=== PATIENT | female | born 1995 | race Caucasian/White ===

== ENCOUNTER 2017-07-12 01:11 | Emergency (ER) | payer OTHER ==
[~2017-07-12] VITALS: Ht 167.6 cm; Wt 60.0 kg
[2017-07-12 01:13] VITALS: BP 137/69; PULSE 86; RESP 18; TEMP 98.3; O2SAT 97
[2017-07-12] MEDS ORDERED: BIRTH CONTROL (01:17)
[2017-07-12] MEDS ORDERED: KETOROLAC TROMETHAMINE 30 MG/ML (IVP) VIAL IV PUSH ONE (01:45)
--- NOTE | 2017-07-12 02:05 | RADRPT ---
EXAM DATE/TIME: 07/12/2017 01:51 [place] COMPARISON: No previous studies available for comparison. INDICATIONS : Patient complains of chest pain. MEDICAL HISTORY : None. SURGICAL HISTORY : None. ENCOUNTER: Initial ACUITY: 1 day PAIN SCORE: 3/10 LOCATION: chest FINDINGS: Single AP view of the chest. The lungs are clear. Cardiomediastinal silhouette within normal limits. No evidence of pleural effusion or pneumothorax. CONCLUSION: No acute cardiopulmonary disease identified. Chau Lancaster MD on July 12, 2017 at 2:03 Board Certified Radiologist. This report was verified electronically.
[2017-07-12 02:10] LABS: AUTOMATED NEUTROPHIL # 3.9 TH/MM3 (1.8-7.7); BASOPHIL % 0.4 % (0.0-2.0); EOSINOPHIL # 0.1 TH/MM3 (0-0.4); EOSINOPHIL % 0.7 % (0.0-4.0); HEMATOCRIT 40.3 % (35.0-46.0); HEMOGLOBIN 13.9 GM/DL (11.6-15.3); LYMPH % 47.8 % (9.0-44.0); LYMPHOCYTE # 4.3 TH/MM3 (1.0-4.8); MEAN CELL VOLUME 84.5 FL (80.0-100.0); MEAN CORPUSCULAR HEMOGLOBIN 29.1 PG (27.0-34.0); MEAN CORPUSCULAR HGB CONC 34.4 % (32.0-36.0); MEAN PLATELET VOLUME 10.5 FL (7.0-11.0); MONO % 7.7 % (0.0-8.0); MONOCYTE # 0.7 TH/MM3 (0-0.9); NEUT % 43.4 % (16.0-70.0); PLATELET COUNT 164 TH/MM3 (150-450); RED BLOOD COUNT 4.77 MIL/MM3 (4.00-5.30); RED CELL DISTRIBUTION WIDTH 13.8 % (11.6-17.2)
--- NOTE | 2017-07-12 02:30 | PD ---
HPI Chief Complaint: Chest Pain Time Seen by Provider: 01:37 Travel History International Travel<30 days: No Contact w/Intl Traveler<30days: No Traveled to known affect area: No History of Present Illness HPI 21-year-old female presents to the emergency department for complaint of chest pain 30 minutes. Pain was 8/10 in intensity presently for over 10 in intensity. Patient denies any injury or fall also denies any fever or productive cough no report of long distance travel protracted bedrest her surgical procedure. Patient states she intermittently takes control pills and is a nonsmoker. No family history of clotting disorder. Father has hypertension and grandfather at age 82 from cardiac disease. Patient states she feels very anxious and tearful states symptoms began while she was sitting watching a movie. Patient states that her chest wall is only mildly tender to palpation. No abdominal pain no mid scapular pain and no upper extremity or lower extremity numbness tingling or weakness. Patient denies . Patient is unable to identify exacerbating or alleviating factors. Patient has taken no medications prior to arrival to the emergency department. [facility] Past Medical History Narrative Medical Negative past medical history dental extraction marijuana use nursing notes reviewed Medical History: Denies Significant Hx ?: Not LMP: 06/17/17 Past Surgical History Other Surgery: Yes (WISDOM TEETH ) Social History Alcohol Use: Yes Tobacco Use: No Substance Use: No Allergies-Medications (Allergen,Severity, Reaction): Coded Allergies: No Known Allergies (Unverified , 07/12/17) Reported Meds & Prescriptions Reported Meds & Active Scripts Active Reported [ Control ] Review of Systems Except as stated in HPI: all other systems reviewed are Neg Physical Exam Narrative GENERAL: Well-developed well-nourished female in no acute distress no respiratory distress SKIN: Warm and dry. HEAD: Normocephalic. EYES: No scleral icterus. No injection or drainage. NECK: Supple, trachea midline. No JVD or lymphadenopathy. CARDIOVASCULAR: Regular rate and rhythm without murmurs, gallops, or rubs. Chest wall mild tenderness to direct palpation of the anterior chest wall which reproduces pain of presentation RESPIRATORY: Breath sounds equal bilaterally. No accessory muscle use. GASTROINTESTINAL: Abdomen soft, non-tender, nondistended. MUSCULOSKELETAL: No cyanosis, or edema. BACK: Nontender without obvious deformity. No CVA tenderness. Data Data Last Documented VS Vital Signs Date Time Temp Pulse Resp B/P (MAP) Pulse Ox O2 Delivery O2 Flow Rate FiO2 07/12/17 02:52 07/12/17 01:13 98.3 86 18 97 Room Air Orders Orders Electrocardiogram (07/12/17 01:30) Complete Blood Count With Diff (07/12/17 01:30) Basic Metabolic Panel (Bmp) (07/12/17 01:30) Ckmb (Isoenzyme) Profile (07/12/17 01:30) Troponin I (07/12/17 01:30) Chest, Single Ap (07/12/17 01:30) Iv Access Insert/Monitor (07/12/17 01:30) Ecg Monitoring (07/12/17 01:30) Oxygen Administration (07/12/17 01:30) Oximetry (07/12/17 01:30) Ed Urine Pregnancytest Poc (07/12/17 01:30) D-Dimer (07/12/17 01:37) Ketorolac Inj (Toradol Inj) (07/12/17 01:45) Potassium Chloride (Kcl) (07/12/17 02:45) Ed Discharge Order (07/12/17 02:44) Labs Laboratory Tests Test 07/12/17 01:50 White Blood Count 9.0 TH/MM3 Red Blood Count 4.77 MIL/MM3 Hemoglobin 13.9 GM/DL Hematocrit 40.3 % Mean Corpuscular Volume 84.5 FL Mean Corpuscular Hemoglobin 29.1 PG Mean Corpuscular Hemoglobin Concent 34.4 % Red Cell Distribution Width 13.8 % Platelet Count 164 TH/MM3 Mean Platelet Volume 10.5 FL Neutrophils (%) (Auto) 43.4 % Lymphocytes (%) (Auto) 47.8 % Monocytes (%) (Auto) 7.7 % Eosinophils (%) (Auto) 0.7 % Basophils (%) (Auto) 0.4 % Neutrophils # (Auto) 3.9 TH/MM3 Lymphocytes # (Auto) 4.3 TH/MM3 Monocytes # (Auto) 0.7 TH/MM3 Eosinophils # (Auto) 0.1 TH/MM3 Basophils # (Auto) 0.0 TH/MM3 CBC Comment DIFF FINAL Differential Comment D-Dimer Quantitative (PE/DVT) 0.20 MG/L FEU Blood Urea Nitrogen 8 MG/DL Creatinine 0.56 MG/DL Random Glucose 96 MG/DL Calcium Level 9.2 MG/DL Sodium Level 139 MEQ/L Potassium Level 3.2 MEQ/L Chloride Level 105 MEQ/L Carbon Dioxide Level 26.4 MEQ/L Anion Gap 8 MEQ/L Estimat Glomerular Filtration Rate 135 ML/MIN Total Creatine Kinase 60 U/L Troponin I LESS THAN 0.02 NG/ML MDM Medical Decision Making Medical Screen Exam Complete: Yes Emergency Medical Condition: Yes Medical Record Reviewed: Yes Interpretation(s) D dimer: 0.20, not elevated Troponin I: Less than 0.02, not elevated EKG: Normal sinus rhythm rate [address] elevation or injury pattern change noted normal axis and intervals present Last Impressions Chest X-Ray 07/12/17 0130 Signed Impressions: Service Date/Time: Wednesday, July 12, 2017 01:51 - CONCLUSION: No acute cardiopulmonary disease identified. Chau Lancaster MD Vital Signs Date Time Temp Pulse Resp B/P (MAP) Pulse Ox O2 Delivery O2 Flow Rate FiO2 07/12/17 01:13 98.3 86 18 137/69 (91) 97 Room Air CBC & BMP Diagram 07/12/17 01:50 Calcium Level 9.2 Differential Diagnosis Chest pain atypical chest pain pleurisy costochondritis musculoskeletal pain pneumothorax pneumonia also consider PE Narrative Course Patient placed on cardiac exercise physiologist IV access obtained continues pulse oximetry performed at specimen sent for resulting Chest x-ray no pneumothorax no lobar infiltrate no acute findings EKG sinus rhythm no acute injury pattern CBC is automated differential is normal and d-dimer is 0.20 not elevated chemistries pending [id number] hCG negative Patient administered Toradol 30 mg IV Patient identified to have mild hypokalemia patient given oral dose of potassium Patient informed of lab results in stable for outpatient management. Diagnosis Primary Impression: Atypical chest pain Referrals: Primary Care Physician call for appointment Patient Instructions: General Instructions Additional Instructions: Follow-up with primary care provider Return to the emergency for for any concerns May use ibuprofen/Advil/Motrin 600 mg as often as every 6 hours as needed for pain associated inflammation for fever 100.4F or greater Add potassium containing foods and beverages to dietary intake Disposition: 01 DISCHARGE HOME Condition: Stable Marianna Royal MD Jul 12, 2017 02:30
[2017-07-12 02:37] LABS: BICARBONATE 26.4 MEQ/L (21.0-32.0); BLOOD UREA NITROGEN 8 MG/DL (7-18); CALCIUM 9.2 MG/DL (8.5-10.1); CHLORIDE 105 MEQ/L (98-107); CREATININE 0.56 MG/DL (0.50-1.00); GLOMERULAR FILTRATION RATE 135 ML/MIN (>89); GLUCOSE,RANDOM 96 MG/DL (74-106); SODIUM (NA) 139 MEQ/L (136-145)
[2017-07-12 02:40] LABS: TROPONIN I LESS THAN 0.02 NG/ML (0.02-0.05)
[2017-07-12] MEDS ORDERED: POTASSIUM CHLORIDE 20 MEQ CONTROLLED RELEASE TAB PO ONE (02:45)
--- NOTE | 2017-07-13 10:07 | EKG ---
Date Performed: 07/12/2017 Time Performed: 01:26:52 PTAGE: 21 years EKG: Sinus rhythm WITH SINUS ARRHYTHMIA NORMAL ECG NO PREVIOUS TRACING DOCTOR: Neetu Baez Interpretating Date/Time 07/13/2017 10:06:36
== END 2017-07-12 03:15 | disposition home or self-care (01) ==
LOC: NEPC 01:11
DX: R07.89 Other chest pain (principal); E87.6 Hypokalemia; I49.8 Other specified cardiac arrhythmias; Z79.3 Long term (current) use of hormonal contraceptives
CPT/HCPCS: 71010; 80048; 82550; 84484; 84703; 85025; 85379; 93005; 96374; 99285; J1885